=== PATIENT | male | born 1975 | race Caucasian/White ===

== ENCOUNTER 2019-08-28 14:21 | Emergency (ER) | payer OTHER ==
[~2019-08-28] VITALS: Ht 185.4 cm; Wt 117.9 kg
[~2019-08-28 14:21] MED LIST: NOHOMEMEDICATIONS; NORCO 5-325 TA1 EACH PO
[2019-08-28 14:27] VITALS: BP 139/99
[2019-08-28] MEDS ORDERED: NORCO 5-325 TA1 EAC2 PO (15:30)
[2019-08-28] MEDS ORDERED: CYCLOBENZAPRINE5 MG PO (15:30)
== END 2019-08-28 15:33 | disposition home or self-care (01) ==
LOC: ER 14:21
DX: M54.6 Pain in thoracic spine (principal); Z88.0 Allergy status to penicillin; V43.42XA Person boarding or alighting a car injured in collision with other type car, initial encounter; Y93.89 Activity, other specified; Y92.488 Other paved roadways as the place of occurrence of the external cause; Y99.8 Other external cause status